=== PATIENT | male | born 1940 | race Caucasian/White ===

== ENCOUNTER 2016-11-24 06:23 | Day surgery (SDC) | payer MEDICARE, OTHER ==
[~2016-11-24] VITALS: Ht 167.6 cm; Wt 76.2 kg
[~2016-11-24 06:23] MED LIST: ASCO10004 PO; ASPI-614 PO; CALCIUM PO; CYCL5TAB PO; DESO15OI3 TP; DILT180C72 PO; ESOM40CA PO; ESZO3TAB28 PO; GLUCOSAMINE PO; LEVO150T5 PO; MAGNESIUM PO; OXYC1TAB9 PO; POTASSIUM PO; SAW1CAPS2 PO; SENN1TAB67 PO; TELM80TA PO; VITAMIN B6 PO
[2016-11-24] MEDS ORDERED: SODIUM CHLORIDE 0.9% 1,000 ML IV SCH ×2 (06:29→06:31)
[2016-11-24] MEDS ORDERED: CEFAZOLIN PMX 1GM/50ML 50 ML IVPB ONE (06:30)
[2016-11-24 06:47] VITALS: BP 123/58
[2016-11-24] MEDS ORDERED: ATOR20TA PO (07:08)
[2016-11-24] MEDS ORDERED: LEVO150C2 PO (07:08)
[2016-11-24] MEDS ORDERED: MOME17SP NAS (07:08)
[2016-11-24] MEDS ORDERED: MAGN64TA7 PO (07:08)
[2016-11-24] MEDS ORDERED: METF500T4 PO (07:08)
[2016-11-24 07:52] LABS: ASPARTATE AMINO TRANSFERASE 21 U/L (15-37); BLOOD UREA NITROGEN 18 mg/dL (7-18)
[2016-11-24 07:53] LABS: HEMATOCRIT 45.1 % (39.2-51.8); HEMOGLOBIN 15.3 g/dL (13.7-18.0); WHITE BLOOD COUNT 8.7 x10^3/uL (3.4-10)
[2016-11-24] MEDS ORDERED: CEFAZOLIN 1,000 MG ONE (07:59)
[2016-11-24] MEDS ORDERED: LIDOCAINE 2%, 20ML ONE (07:59)
[2016-11-24] MEDS ORDERED: CEFAZOLIN PMX 1GM/50ML 50 ML ONE (07:59)
[2016-11-24] MEDS ORDERED: MIDAZOLAM 1 MG/ML, 5ML ONE (07:59)
[2016-11-24] MEDS ORDERED: FENTANYL PF 100 MCG/2ML ONE (07:59)
[2016-11-24] MEDS ORDERED: SODIUM CHLORIDE FLUSH 10ML SYR IVF SCH (09:00)
[2016-11-24] MEDS ORDERED: MAGNESIUM CHLORIDE 64 MG TABLET.DR PO SCH (09:00)
[2016-11-24] MEDS ORDERED: LEVOTHYROXINE 150 MCG TABLET PO SCH (09:00)
[2016-11-24] MEDS ORDERED: TEMPLATE NON-FORMULARY MED. (Diltiazem Hcl** (Diltiazem Er**) 180 MG) PO SCH (09:00)
[2016-11-24] MEDS ORDERED: [UNRECOGNIZED DRUG - OTHER] PO SCH (09:00)
[2016-11-24] MEDS ORDERED: SAW PALMETTO XTR PO SCH (09:00)
[2016-11-24] MEDS ORDERED: TEMPLATE NON-FORMULARY MED. (Ascorbic Acid** (Vitamin C**) 1,000 MG) PO SCH (09:00)
[2016-11-24] MEDS ORDERED: TEMPLATE NON-FORMULARY MED. (Esomeprazole Magnesium** (Nexium**) 40 MG) PO SCH (09:00)
[2016-11-24] MEDS ORDERED: MOMETASONE FUROATE NAS PRN (09:00)
[2016-11-24] MEDS ORDERED: LEVOTHYROXINE SODIUM 150 MCG PO SCH (09:00)
[2016-11-24] MEDS ORDERED: ZINC PICOLIN PO SCH (09:00)
[2016-11-24] MEDS ORDERED: metFORMIN 500 MG TABLET PO SCH (09:00)
[2016-11-24] MEDS ORDERED: CEPH-368 PO (09:12)
[2016-11-24] MEDS ORDERED: TEMPLATE NON-FORMULARY MED. (Telmisartan** (Micardis**) 80 MG) PO SCH (12:00)
[2016-11-24] MEDS ORDERED: ASPIRIN 81 MG TABLET CHEW PO SCH (21:00)
[2016-11-24] MEDS ORDERED: TEMPLATE NON-FORMULARY MED. (Eszopiclone** (Lunesta**) 3 MG) PO SCH (21:00)
[2016-11-24] MEDS ORDERED: ATORVASTATIN 20 MG TABLET PO SCH (21:00)
== END 2016-11-24 10:36 | disposition home or self-care (01) ==
LOC: CACL 06:23
PROVIDERS: ATTEND Internal Medicine Cardiovascular Disease
DX: I44.2 Atrioventricular block, complete (principal); E78.5 Hyperlipidemia, unspecified; I10 Essential (primary) hypertension; Z87.891 Personal history of nicotine dependence; Z79.82 Long term (current) use of aspirin; Z72.89 Other problems related to lifestyle
CPT/HCPCS: 33228; 36415; 71020; 80053; 85025; 85610; 85730; 99156; C1785; J0690; J2250; J3010; J3490